=== PATIENT | female | born 1985 | race Caucasian/White ===

== ENCOUNTER 2020-10-18 11:36 | Emergency (ER) | payer OTHER ==
[~2020-10-18] VITALS: Ht 157.5 cm; Wt 63.5 kg
[2020-10-18 12:05] VITALS: BP 136/91
--- NOTE | 2020-10-18 12:12 | NUR ---
L SIDE NECK PAIN 4/10 STARTING THIS MORNING. PT DENIED INJURY TO NECK OR OTHER MEDICAL COMPLAINTS.
--- NOTE | 2020-10-18 12:19 | NUR ---
STREP SWAB COLLECTED AND WALKED TO LAB
--- NOTE | 2020-10-18 13:25 | NUR ---
Patient discharged with v/s stable. Written and verbal after care instructions about viral pharyngitis given and explained. Patient alert, oriented and verbalized understanding of instructions. Ambulatory with steady gait. All questions addressed prior to discharge. ID band removed. Patient advised to follow up with PMD. Rx of naprosyn given. Patient educated on indication of medication including possible reaction and side effects. Opportunity to ask questions provided and answered.
[2020-10-18 13:31] VITALS: BP 136/91
== END 2020-10-18 13:25 | disposition home or self-care (01) ==
LOC: MED 11:36
DX: J02.9 Acute pharyngitis, unspecified (principal)
CPT/HCPCS: 87081; 99283

== ENCOUNTER 2020-10-19 11:13 | Emergency (ER) | payer OTHER ==
[~2020-10-19] VITALS: Ht 157.5 cm; Wt 63.5 kg
[2020-10-19 11:19] VITALS: BP 119/73
--- NOTE | 2020-10-19 13:11 | NUR ---
Patient discharged with v/s stable. Written and verbal after care instructions given and explained. Patient alert, oriented and verbalized understanding of instructions. Ambulatory with steady gait. All questions addressed prior to discharge. ID band removed. Patient advised to follow up with PMD. Rx of Amoxicillin and Lidocaine viscous given. Patient educated on indication of medication including possible reaction and side effects. Opportunity to ask questions provided and answered. No nursing care provided in our ER.
== END 2020-10-19 13:11 | disposition home or self-care (01) ==
LOC: MED 11:13
DX: J02.8 Acute pharyngitis due to other specified organisms (principal); B96.89 Other specified bacterial agents as the cause of diseases classified elsewhere
CPT/HCPCS: 99283

== ENCOUNTER 2021-01-30 14:04 | Emergency (ER) | payer OTHER ==
[~2021-01-30] VITALS: Ht 157.5 cm; Wt 71.7 kg
[2021-01-30 14:09] VITALS: BP 111/91
--- NOTE | 2021-01-30 14:10 | NUR ---
35 YO F BIB SELF FOR C/C OF LEFT EAR IRRITATION X2 DAYS WITH DIMINISHED HEARING. PT DENIES PAIN AT THIS TIME. DENIES DRAINAGE OR FEVERS. PT WAITING IN LOBBY. MED HX: DENIES NKA
--- NOTE | 2021-01-30 14:56 | NUR ---
DR. HASSAN EXAMINING PT IN LOBBY
[2021-01-30] MEDS ORDERED: CARBAMIDE PEROXIDE 6.5% OT 15 ML BTL OT ONE (15:10)
[2021-01-30] MEDS ORDERED: CIPR7.5S OT (16:24)
[2021-01-30 16:49] VITALS: BP 111/91
--- NOTE | 2021-01-30 16:49 | NUR ---
Patient discharged with v/s stable. Written and verbal after care instructions ABOUT EAR IRRIGATION AND OTITIS EXTERNA given and explained. Patient alert, oriented and verbalized understanding of instructions. Ambulatory with steady gait. All questions addressed prior to discharge. ID band removed. Patient advised to follow up with PMD. Rx of CIPROFLOXACIN given. Patient educated on indication of medication including possible reaction and side effects. Opportunity to ask questions provided and answered.
== END 2021-01-30 16:49 | disposition home or self-care (01) ==
LOC: MED 14:04
DX: H66.92 Otitis media, unspecified, left ear (principal); Z79.899 Other long term (current) drug therapy
CPT/HCPCS: 99283

== ENCOUNTER 2024-01-23 07:51 | Emergency (ER) | payer OTHER ==
[~2024-01-23] VITALS: Ht 160 cm; Wt 68.5 kg
[~2024-01-23 07:51] MED LIST: CIPR7.5S OT
[2024-01-23 08:03] VITALS: BP 122/76; PULSE 83; RESP 16; TEMP 97; O2SAT 95
[2024-01-23 08:47] VITALS: BP 122/76; PULSE 83; RESP 16; TEMP 97; O2SAT 95
[2024-01-23 09:28] LABS: FLU A ANTIGEN negative (NEGATIVE); FLU B ANTIGEN negative (NEGATIVE)
== END 2024-01-23 08:58 | disposition home or self-care (01) ==
LOC: MED 07:51
DX: J02.9 Acute pharyngitis, unspecified (principal); Z20.822 Contact with and (suspected) exposure to COVID-19; Z79.899 Other long term (current) drug therapy
CPT/HCPCS: 87081; 99283

== ENCOUNTER 2024-02-27 09:08 | Emergency (ER) | payer OTHER ==
[~2024-02-27] VITALS: Ht 154.9 cm; Wt 54.4 kg
[2024-02-27 09:26] VITALS: BP 109/75; PULSE 75; RESP 18; TEMP 97.9; O2SAT 100
[2024-02-27] MEDS: FLUORESCEIN OPTH STRIP 1 MG OP ONE (10:30)
[2024-02-27] MEDS: TETRACAINE HCL/PF 0.5% OPTH 4 ML BTL OP ONE (10:31)
[2024-02-27] MEDS ORDERED: POLY15SO74 RIGHT EYE (11:06)
[2024-02-27 11:24] VITALS: BP 110/72; PULSE 72; TEMP 98.2; O2SAT 98
== END 2024-02-27 11:24 | disposition home or self-care (01) ==
LOC: MED 09:08
DX: H57.13 Ocular pain, bilateral (principal)
CPT/HCPCS: 99283

== ENCOUNTER 2024-03-01 07:45 | Emergency (ER) | payer OTHER ==
[~2024-03-01] VITALS: Ht 160 cm; Wt 73.0 kg
[~2024-03-01 07:45] MED LIST changes: +POLY15SO74 RIGHT EYE
[2024-03-01 08:22] VITALS: BP 116/72; PULSE 78; RESP 18; TEMP 98.2; O2SAT 100
[2024-03-01 09:23] VITALS: BP 111/72; PULSE 70; RESP 20; TEMP 98; O2SAT 99
== END 2024-03-01 09:23 | disposition home or self-care (01) ==
LOC: MED 07:45
DX: R22.1 Localized swelling, mass and lump, neck (principal); Z79.899 Other long term (current) drug therapy
CPT/HCPCS: 99284

== ENCOUNTER 2024-04-30 01:20 | Emergency (ER) | payer BC, OTHER ==
[~2024-04-30] VITALS: Ht 167.6 cm; Wt 74.4 kg
[2024-04-30 01:29] VITALS: BP 115/84; PULSE 89; RESP 14; TEMP 97.5; O2SAT 98
[2024-04-30] MEDS ORDERED: BENZ-300 PO (01:34)
[2024-04-30] MEDS ORDERED: AMOX1TAB8 PO (01:34)
[2024-04-30] MEDS ORDERED: IBUP-1842 PO (01:34)
[2024-04-30] MEDS ORDERED: ACET-10509 PO (01:37)
[2024-04-30 01:38] VITALS: BP 115/84; PULSE 89; RESP 14; TEMP 97.5; O2SAT 98
== END 2024-04-30 01:40 | disposition home or self-care (01) ==
LOC: MED 01:20
DX: J02.0 Streptococcal pharyngitis (principal); Z79.899 Other long term (current) drug therapy
CPT/HCPCS: 87081; 99283

== ENCOUNTER 2024-06-12 02:10 | Emergency (ER) | payer BC, OTHER ==
[~2024-06-12] VITALS: Ht 162.6 cm; Wt 68.0 kg
[~2024-06-12 02:10] MED LIST changes: +ACET-10509 PO; +AMOX1TAB8 PO; +BENZ-300 PO; +IBUP-1842 PO
[2024-06-12 02:12] VITALS: BP 118/76; PULSE 92; RESP 16; TEMP 97.6; O2SAT 98
[2024-06-12 02:57] LABS: APPEARANCE,URINE CLEAR (CLEAR); BILIRUBIN,URINE NEGATIVE (NEGATIVE); BLOOD, URINE TRACE-I (NEGATIVE); COLOR,URINE YELLOW (YELLOW); LEUKOCYTE ESTERASE ,URINE NEGATIVE (NEGATIVE); NITRITE, URINE POSITIVE (NEGATIVE); PROTEIN,URINE 1+ (NEGATIVE); UGLUCOSE NEGATIVE (NEGATIVE); UROBILINOGEN,URINE 0.2 EU/dL (0.2 - 1)
[2024-06-12 03:07] LABS: BASOPHILS % (AUTO) 0.2 % (0.0-2.0); EOSINOPHILS # (AUTO) 0.1 K/uL (0-0.4); EOSINOPHILS % (AUTO) 0.4 % (0.0-4.0); LYMPHOCYTES # (AUTO) 1.2 K/uL (2.5-16.5); LYMPHOCYTES % (AUTO) 6.6 % (20.5-51.1); MEAN CORPUSCULAR HEMOGLOBIN 29 pg (27-31); MEAN CORPUSCULAR HGB CONC 33 g/dL (33-37); MEAN CORPUSCULAR VOLUME 89.3 fL (80-94); MONOCYTES # (AUTO) 1.1 K/uL (0.8-1.0); MONOCYTES % (AUTO) 5.8 % (1.7-9.3); NEUTROPHILS # (AUTO) 15.8 K/uL (1.8-7.7); PLATELET COUNT (AUTO) 261 K/uL (140-450); RED BLOOD CELL COUNT(AUTO) 4.81 MIL/uL (4.20-5.40); RED CELL DISTRIBUTION WIDTH 13.2 % (11.6-13.7); WHITE BLOOD COUNT (AUTO) 18.2 K/uL (4.8-10.8)
[2024-06-12 03:13] LABS: BACTERIA,URINE >30 (MANY) /HPF (None Seen); MUCUS,URINE 1+ /LPF (None Seen); RBC,URINE 0-5 /HPF (0-5); SQUAMOUS EPITHELIAL CELL,UR 0-3 (FEW) /LPF (0-3 (FEW)); WBC,URINE 0-5 /HPF (0-5)
[2024-06-12 03:25] LABS: CALCIUM 8.9 mg/dL (8.5-10.1); CARBON DIOXIDE 26.1 mmol/L (21-32); POTASSIUM 4.1 mmol/L (3.5-5.1)
[2024-06-12 03:28] LABS: ALBUMIN 4.1 g/dL (3.4-5.0); BILIRUBIN,DIRECT 0.1 mg/dL (0.0-0.3); TOTAL BILIRUBIN 0.3 mg/dL (0.0-1.0); TOTAL PROTEIN, SERUM 8.1 g/dL (6.4-8.2)
[2024-06-12] MEDS: KETOROLAC 30 MG/ML VIAL IM ONE (03:30)
[2024-06-12] MEDS: ONDANSETRON 4 MG ODT PO ONE (03:31)
[2024-06-12] MEDS ORDERED: IBUP-2213 PO (04:36)
[2024-06-12] MEDS ORDERED: CEPH-588 PO (04:36)
[2024-06-12] MEDS ORDERED: ONDA-188 PO (04:36)
[2024-06-12] MEDS ORDERED: ATRO1TAB PO (04:36)
[2024-06-12 04:41] VITALS: BP 122/76; PULSE 92; RESP 16; TEMP 97.6; O2SAT 98
== END 2024-06-12 04:41 | disposition home or self-care (01) ==
LOC: MED 02:10
DX: A08.4 Viral intestinal infection, unspecified (principal); N39.0 Urinary tract infection, site not specified; Z79.1 Long term (current) use of non-steroidal anti-inflammatories (NSAID); Z79.2 Long term (current) use of antibiotics; Z79.899 Other long term (current) drug therapy
CPT/HCPCS: 36415; 80048; 80076; 81001; 81025; 83690; 85025; 87086; 96372; 99283; J1885; Q0162

== ENCOUNTER 2024-08-10 15:01 | Emergency (ER) | payer BC, OTHER ==
[~2024-08-10] VITALS: Ht 165.1 cm; Wt 63.5 kg
[~2024-08-10 15:01] MED LIST changes: -ACET-10509 PO; +ACET500T99 PO; +ATRO1TAB PO; +CEPH-588 PO; +IBUP-2213 PO; +ONDA-188 PO
[2024-08-10 15:06] VITALS: BP 124/84; PULSE 86; RESP 20; TEMP 98.9; O2SAT 98
[2024-08-10] MEDS: ALUMINUM HYD/MAG/SIMETHICONE 30 ML UDC PO ONE (16:06)
[2024-08-10] MEDS: ONDANSETRON 4 MG ODT PO ONE (16:06)
[2024-08-10] MEDS: IBUPROFEN 600 MG TAB PO ONE (16:07)
[2024-08-10] MEDS: LOPERAMIDE 2 MG CAP PO ONE (16:08)
[2024-08-10 16:54] LABS: APPEARANCE,URINE CLEAR (CLEAR); BILIRUBIN,URINE NEGATIVE (NEGATIVE); BLOOD, URINE TRACE-I (NEGATIVE); COLOR,URINE YELLOW (YELLOW); LEUKOCYTE ESTERASE ,URINE NEGATIVE (NEGATIVE); NITRITE, URINE NEGATIVE (NEGATIVE); PROTEIN,URINE NEGATIVE (NEGATIVE); UGLUCOSE NEGATIVE (NEGATIVE); UROBILINOGEN,URINE 0.2 EU/dL (0.2 - 1)
[2024-08-10 17:54] LABS: BACTERIA,URINE FEW /HPF (None Seen); RBC,URINE 0-5 /HPF (0-5); WBC,URINE 0-5 /HPF (0-5)
[2024-08-10] MEDS ORDERED: LOPE-289 PO (17:55)
[2024-08-10 18:19] VITALS: BP 125/70; PULSE 86; RESP 20; TEMP 97.7; O2SAT 98
== END 2024-08-10 18:19 | disposition home or self-care (01) ==
LOC: MED 15:01
DX: K52.9 Noninfective gastroenteritis and colitis, unspecified (principal); Z79.899 Other long term (current) drug therapy
CPT/HCPCS: 81001; 81025; 99284; Q0162